=== PATIENT | male | born 1985 | race African-American/Black ===

== ENCOUNTER 2017-01-25 13:17 | Emergency (ER) | payer OTHER ==
[~2017-01-25] VITALS: Ht 188 cm; Wt 108.9 kg
[2017-01-25 13:32] VITALS: BP 134/90
--- NOTE | 2017-01-25 14:17 | RAD ---
Lumbar spine, 3 views, 01/25/2017: History: Low back pain There is a transitional-type vertebra at the lumbosacral junction probably representing a partially lumbarized S1 segment. No fracture or dislocation is identified. The intervertebral disc spaces are well preserved. There is minimal spurring in the lower thoracic spine. The paraspinous soft tissues are unremarkable. IMPRESSION: 1. 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 2. No acute bony abnormality is detected.
--- NOTE | 2017-01-25 14:18 | RAD ---
Right knee with patella, 4 views, 01/25/2017: History: Chronic knee pain No fracture or dislocation is identified. No significant arthritic change is seen. No joint effusion is evident. IMPRESSION: No significant right knee abnormality is detected.
[2017-01-25] MEDS ORDERED: NAPR500T8 PO (14:39)
--- NOTE | 2017-01-25 14:39 | PHYS DOC ---
Past Medical History Past Medical History: Hypertension Past Surgical History: Tonsillectomy Alcohol Use: None Drug Use: None Adult General Chief Complaint Chief Complaint: KNEE INJURY HPI HPI Patient is a 31 year old male who presents with mild right knee and low back pain that began 2 weeks ago. Patient denies any known injury. He is up and ambulating with no difficulties. Review of Systems Review of Systems Constitutional: Denies fever or chills [] Eyes: Denies change in visual acuity, redness, or eye pain [] HENT: Denies nasal congestion or sore throat [] : Denies dysuria or hematuria [] Musculoskeletal: low back pain and right knee pain Integument: Denies rash or skin lesions [] Neurologic: Denies headache, focal weakness or sensory changes [] Endocrine: Denies polyuria or polydipsia [] Allergies Allergies Allergies Coded Allergies Type Severity Reaction Last Updated Verified No Known Drug Allergies 01/25/17 No Physical Exam Physical Exam Constitutional: Well developed, well nourished, no acute distress, non-toxic appearance. [] HENT: Normocephalic, atraumatic, bilateral external ears normal, oropharynx moist, no oral exudates, nose normal. [] Eyes: PERRLA, EOMI, conjunctiva normal, no discharge. [] Neck: Normal range of motion, no tenderness, supple, no stridor. [] Cardiovascular:Heart rate regular rhythm, no murmur [] Lungs & Thorax: Bilateral breath sounds clear to auscultation [] Abdomen: Bowel sounds normal, soft, no tenderness, no masses, no pulsatile masses. [] Skin: Warm, dry, no erythema, no rash. [] Back: Diffuse paraspinal muscle tenderness to bilateral low lumbar region, no midline tenderness, no CVA tenderness. [] Extremities: Right knee with no obvious edema and obvious ecchymosis, tenderness on palpation of right anterior knee. Full range of motion to the right knee. Negative Keerthi sign and negative Dane's sign negative anterior -posterior drawer sign. +2 right pedal pulse. Cap refill less than 2 seconds the right lower extremity. Neurologic: Alert and oriented X 3, normal motor function, normal sensory function, no focal deficits noted. [] Psychologic: Affect normal, judgement normal, mood normal. [] Current Patient Data Vital Signs Vital Signs Date Time Temp Pulse Resp B/P Pulse Ox O2 Delivery O2 Flow Rate FiO2 01/25/17 13:32 98.5 84 18 99 Room Air 98.5 EKG EKG [] Radiology/Procedures Radiology/Procedures [] Course & Med Decision Making Course & Med Decision Making Pertinent Labs and Imaging studies reviewed. (See chart for details) Patient is in the ED with back and right knee pain, no known injury. X-rays of the lumbar spine on the right knee interpreted by radiologist are negative for any acute findings. Patient's pain is very muscle skeletal. Discharged with naproxen. Ice elevation encouraged. Follow-up with orthopedic doctor in one week. Dragon Disclaimer Dragon Disclaimer This electronic medical record was generated, in whole or in part, using a voice recognition dictation system. Departure Departure Impression: Primary Impression: Back pain Additional Impression: Knee pain, right Disposition: 01 HOME, SELF-CARE Condition: STABLE Referrals: UNKNOWN PCP NAME (PCP) Follow-up with your own doctor or the provided doctor in one week DAGO HARRISON MD Patient Instructions: Back Pain, Adult, Knee Pain Additional Instructions: You have back and knee pain. Your xrays are normal. Ice the affected parts. Elevate the affected extremity. Follow-up with the provided orthopedic doctor or your own doctor in one week. Scripts Naproxen 500 Mg Tablet.dr1 Tab PO BID #60 TAB Ref 2 Prov:MARGARITO NAGY RADHA 01/25/17 Problem Qualifiers Primary Impression: Back pain Back pain location: low back pain Chronicity: acute Back pain laterality: bilateral Sciatica presence: without sciatica Qualified Code: M54.5 - Low back pain Additional Impression: Knee pain, right Chronicity: acute Qualified Code: M25.561 - Pain in right knee MARGARITO NAGY RADHA Jan 25, 2017 14:39
== END 2017-01-25 14:43 | disposition home or self-care (01) ==
LOC: ER 13:17
DX: M25.561 Pain in right knee (principal); M54.5 Low back pain; G89.29 Other chronic pain; I10 Essential (primary) hypertension
CPT/HCPCS: 72100; 73564; 99284